=== PATIENT | male | born 1935 | race Caucasian/White ===

== ENCOUNTER 2017-04-03 10:23 | Emergency (ER) | payer OTHER ==
--- NOTE | 2017-04-03 12:17 | DIAGNOSTIC IMAGING REPORT ---
PROCEDURE: XR LUMBAR SPINE 2 OR 3 VIEWS INDICATION: LOWER BACK PAIN TECHNIQUE: Three views. COMPARISON: None. FINDINGS: Normal alignment. Mild T11, T12 and L1 compression fractures which appear chronic. Loss of lordosis. Moderate spur formation most prominent at L3-4. Mild L3-4 disc space narrowing. Soft tissues are unremarkable. IMPRESSION: 1. Mild T11, T12-L1 compression fractures which appear chronic 2. Loss of lordosis suggestive of muscular spasm 3. Moderate degenerative changes with mild L3-4 disc space narrowing.
--- NOTE | 2017-04-03 13:22 | ED NURSING NOTES ---
Clinical Report - Nurses [facility] [address] [place] [address] 04/03/2017 10:27 Patient: REECE ALLEN TRIAGE Triage time 10:40. Acuity: LEVEL 3. Chief Complaint: BACK PAIN and (Lower rt side pain). Alert. No acute distress. SEPSIS SCREEN: Sepsis Screen: negative. Negative (no infection suspected/documented). SARA COMA SCORE: Sara Coma Scale: 15- eyes open spontaneously (4); best verbal response- oriented x 4 (5); best motor response- obeys commands (6). --10:49 Sasha Ashby R.N. 10:40 04/03/17. BP: 114/95 taken on the left arm, while sitting. HR: 76. RR: 20. O2 saturation: 96%. Temp: 97.9 F. Pain level now: 08/09. --10:49 Sasha Ashby R.N. Weight: 77.1 kg stated. Height/Length: 65 inches Per Patient. BMI: 28.3. --10:47 Sasha Ashby R.N. Medications Atenolol Oral 100 mg, daily. HCTZ 50 mg, daily. Lisinopril Oral 20 mg, daily. --10:43 Sasha Ashby R.N. MetFORMIN HCl Oral 850 mg, daily. --10:44 Sasha Ashby R.N. Simvastatin Oral 20 mg, daily. --10:45 Sasha Ashby R.N. Glimepiride Oral (Tablet 2 mg) 1 tablet, day. --10:45 Sasha Ashby R.N. Doxazosin Mesylate Oral (Tablet 2 mg) 1 tablet, day. --10:46 Sasha Ashby R.N. Medication/allergy information source: the patient. --10:49 Sasha Ashby R.N. Allergies NKDA. --10:43 Sasha Ashby R.N. History Arrived by private vehicle. Historian: patient and family. This started last night. No history of recent trauma. Treatment MATERIAL SPECIALIST: None. SOCIAL HX: Never smoker. No alcohol use or drug use. FALL RISK ASSESSMENT: Fall risk assessment completed. No fall risk identified. NUTRITIONAL RISK ASSESSMENT: The nutritional risk assessment revealed no deficiencies. FUNCTIONAL ASSESSMENT: Functional assessment: no impairments noted. LEARNING NEEDS ASSESSMENT: The learning needs assessment revealed no barriers. SKIN INTEGRITY ASSESSMENT: Skin integrity risk assessment completed. No skin integrity risk identified. --10:49 Sasha Ashby R.N. PAST MEDICAL HX: Tetanus status: unknown. --10:49 Sasha Ashby R.N. PROBLEMS: Chest pain . Hypercholesterolemia. Diabetes Mellitus. Back Pain. --10:47 Sasha Ashby R.N. ADDITIONAL SURGERIES: no known surgeries. Interventions ID band on patient. To room. --10:49 Sasha Ashby R.N. PHYSICAL ASSESSMENT To room via wheelchair. Patient gowned. GENERAL / NEURO / PSYCH: Alert. Oriented X 4. Appears in pain and anxious. RESPIRATORY: Respirations not labored. CVS: Capillary refill less than 2 seconds. GI / : Abdomen nontender. EXTREMITIES: Limited ROM present. Sensation intact in extremities. BACK: Limited ROM of the back. --10:50 Sasha Ashby R.N. NURSING PROGRESS NOTES Cold pack applied. Patient gowned. Head of bed elevated. Two patient identifiers checked. Call light placed in reach. Side rails up x 2. Bed placed in lowest position. Brakes of bed on. Patient ready for evaluation. --10:50 Sasha Ashby R.N. Patient returned from radiology by stretcher with tech. --11:44 Sasha Ashby R.N. 12:29 04/03/2017 Toradol (Ketorolac Tromethamine) IM 60 mg given. Given in the left gluteus christine. Allergies verified and confirmed 5 rights. --12:29 Sasha Ashby R.N. 12:29 04/03/2017 Valium (Diazepam) IM 3 mg given. Given in the right gluteus christine. --12:29 Sasha Ashby R.N. DISPOSITION / DISCHARGE Condition at departure: improved. No learning barriers present. Discharge instructions provided and reviewed with the patient. Reviewed medication(s) side effects, precautions, dosing and course information. Prescription(s) given to the patient. Patient verbalized understanding. Written instructions provided in Spanish and Russian. The patient was discharged home and accompanied by spouse. He left the Emergency Department ambulatory and via private vehicle. Spouse driving. Medication list reviewed and validated. --13:57 Sasha Ashby R.N. 13:30 04/03/17. BP: 122/76. HR: 69. RR: 18. O2 saturation: 98%. Temp: deferred. Pain level now: 05/09. 12:10 04/03/17. BP: 136/76. HR: 78. RR: 20. O2 saturation: 97%. Pain level now: 05/09. Additional comments: improving . 10:40 04/03/17. BP: 114/95 taken on the left arm, while sitting. HR: 76. RR: 20. O2 saturation: 96%. Temp: 97.9 F. Pain level now: 08/09. --13:57 Sasha Ashby R.N. Departure time: 1330. --13:58 Sasha Ashby R.N. Locked/Released at 04/03/2017 14:00 by Sasha Ashby R.N.
--- NOTE | 2017-04-03 13:22 | ED CLINICAL REPORT ---
Clinical Report - Physicians/Mid Levels [facility] [address] [address] 04/03/2017 10:27 Patient: REECE ALLEN Time Seen: 11:01. Arrived- By private vehicle. Historian- patient, using an historic interpreter via language phone. HISTORY OF PRESENT ILLNESS Chief Complaint: BACK PAIN. Modifying factors- worsened by walking. Relieved by lying down or remaining still. It is described as being severe and in the area of the lower lumbar spine and right side of the lower lumbar spine. The quality is noted to be sharp. No radiation. Onset was yesterday and it is still present. It was abrupt in onset and has been constant. No bladder dysfunction, bowel dysfunction, sensory loss or motor loss. Patient denies an injury. Similar symptoms previously: None. REVIEW OF SYSTEMS No chills, fever, calf pain, chest pain or cough. No difficulty breathing, palpitations, abdominal pain, black stools or bloody stools. No constipation, diarrhea, nausea, vomiting or urinary problems. The patient has experienced sweats. It has been similar to previous symptoms. (chronically). He has had mild pedal edema involving the right and left leg (chronically). It has been similar to previous symptoms. All systems otherwise negative, except as recorded above. PAST HISTORY PCP - REECE HINDS SOCIAL HISTORY Never smoker. No alcohol use or drug use. ADDITIONAL NOTES The nursing notes have been reviewed. PHYSICAL EXAM Vital Signs: 04/03/2017 10:40 BP: 114/95. HR: 76. RR: 20. O2 saturation: 96%. Temp: 97.9 F. Pain level now: 10. Have been reviewed. Appearance: Alert. Eyes: Pupils equal, round and reactive to light. ENT: Pharynx normal. Neck: Normal inspection. Painless ROM. CVS: Normal heart rate and rhythm. Heart sounds normal. Respiratory: No respiratory distress. Breath sounds normal. Abdomen: Normal inspection. Soft and nontender. Bowel sounds normal. No organomegaly. No mass. Back: Muscle spasm present. Limited ROM in the back. No vertebral point tenderness. Skin: Skin warm and dry. Normal skin color. Normal skin turgor. Extremities: Extremities exhibit normal ROM. Extremities nontender. No calf tenderness. Neuro: No motor deficit. No sensory deficit. LABS, X-RAYS, AND EKG LS-Spine X-rays: (IMPRESSION: 1. Mild T11, T12-L1 compression fractures which appear chronic 2. Loss of lordosis suggestive of muscular spasm 3. Moderate degenerative changes with mild L3-4 disc space narrowing.). The X-rays were interpreted by the radiologist and contemporaneously by me. Laboratory Tests: UA-Culture if indicated: (CITLALI: 04/03/2017 12:45) ( MsgRcvd 04/03/2017 13:14) Final results Test Result Flag Units (Reference) URINE COLOR YELLOW URINE APPEARANCE CLEAR URINE GLUCOSE NEGATIVE (NEGATIVE) URINE BILIRUBIN NEGATIVE (NEGATIVE) URINE KETONE NEGATIVE (NEGATIVE) URINE SPECIFIC GRAVITY 1.020 (1.010-1.030) URINE PH 6.5 (5.0-8.0) URINE PROTEIN NEGATIVE (NEGATIVE) URINE UROBILINOGEN 0.2 EU/dL (0.2-1.0) URINE NITRITE NEGATIVE (NEGATIVE) URINE BLOOD NEGATIVE (NEGATIVE) URINE LEUK ESTERASE NEGATIVE (NEGATIVE) URINE RBC NONE SEEN rbc/hpf (0-1) URINE WBC RARE wbc/hpf (0-1) URINE EPITHELIAL CELLS 0-1 EPI/hpf (0-5) URINE BACTERIA TRACE (<1+) (NONE SEEN) URINE COMMENT CULT NOT INDICATED URINE CULTURES ARE SET-UP BASED ON THE FOLLOWING CRITERIA:POSITIVE NITRITEPOSITIVE LEUKOCYTE ESTERASEGREATER THAN 10 WHITE BLOOD CELLSMODERATE (2+) OR GREATER BACTERIA . PROGRESS AND PROCEDURES Course of Care: Patient is stable. Patient/family counseled. Old medical records reviewed. CLINICAL IMPRESSION Acute nontraumatic lumbar back pain associated with degenerative joint disease of the lumbar spine; degenerative disc disease of the lumbar spine. INSTRUCTIONS Apply ice for 20 minutes four times a day until better. Don't apply ice directly to skin and don't use while asleep. No driving or operating machinery while taking medication. Sedative medication was given during your visit. No lifting greater than 5 lbs, no bending or stooping or no prolonged sitting. Warnings: GENERAL WARNINGS: Return or contact your physician immediately if your condition worsens or changes unexpectedly, if not improving as expected, or if other problems arise. Prescription Medications: Hydrocodone/APAP 5mg/325mg: take 1 to 2 orally every 6 hours as needed for pain. Dispense fifteen (15). No refills. Understanding of the discharge instructions verbalized by patient. (Electronically signed by Coleman York MD 04/03/2017 20:43)
--- NOTE | 2017-04-03 13:22 | ED ORDER SUMMARY ---
..... Patient: REECE ALLEN OrderSheet [facility] VisitID: [id number] [place] [address] 81y, M Registration Date/Time: 04/03/2017 ORDER SHEET Weight: 77.1 kg (stated) Allergies: NKDA GENERAL ORDERS: Lumbar Spine 2 or 3V Urgent (11:06 04/03/2017 Titi FRANCISCO) (Ack 11:17 Karen) (12:15 SRoberts R.N.) UA-Culture if indicated Urgent (11:54 04/03/2017 Titi FRANCISCO) (Ack 12:10 Karen) (12:50 COerbanner) MEDICATION ORDERS: Toradol IM 60 mg (NOW) (11:58 04/03/2017 Titi FRANCISCO) (Ack 12:15 SRoberts R.N.) (12:29 SRoberts R.N.) Valium IM 3 mg (HIGH ALERT MEDICATION, NOW) (11:58 04/03/2017 Titi FRANCISCO) (Ack 12:15 SRoberts R.N.) (12:29 SRoberts R.N.) IV FLUIDS: ORDER SHEET NOTES: [Electronically signed by Sasha Ashby R.N. (14:00 04/03/2017)] [Electronically signed by Coleman York MD (20:43 04/03/2017)] [Electronically locked/signed by Sasha Ashby R.N. (14:00 04/03/2017)]
--- NOTE | 2017-04-03 13:22 | ED ORDER SUMMARY ---
..... Patient: REECE ALLEN OrderSheet [facility] VisitID: [id number] [place] [address] 81y, M Registration Date/Time: 04/03/2017 ORDER SHEET Weight: 77.1 kg (stated) Allergies: NKDA GENERAL ORDERS: Lumbar Spine 2 or 3V Urgent (11:06 04/03/2017 Titi FRANCISCO) (Ack 11:17 Karen) (12:15 SRoberts R.N.) UA-Culture if indicated Urgent (11:54 04/03/2017 Titi FRANCISCO) (Ack 12:10 Karen) (12:50 [facility] MEDICATION ORDERS: Toradol IM 60 mg (NOW) (11:58 04/03/2017 Titi FRANCISCO) (Ack 12:15 SRoberts R.N.) (12:29 SRoberts R.N.) Valium IM 3 mg (HIGH ALERT MEDICATION, NOW) (11:58 04/03/2017 Titi FRANCISCO) (Ack 12:15 SRoberts R.N.) (12:29 SRoberts R.N.) IV FLUIDS: ORDER SHEET NOTES: [Electronically signed by Sasha Ashby R.N. (14:00 04/03/2017)] [Electronically signed by Coleman York MD (20:43 04/03/2017)] [Electronically locked/signed by Sasha Ashby R.N. (14:00 04/03/2017)]
--- NOTE | 2017-04-03 20:44 | ED DISCHARGE INSTRUCTIONS ---
Patient: REECE ALLEN General Instructions [facility] VisitID: [id number] [place] [address] 81y, M Registration Date/Time: 04/03/2017 Acute nontraumatic lumbar back pain associated with degenerative joint disease of the lumbar spine; degenerative disc disease of the lumbar spine. INSTRUCTIONS Apply ice for 20 minutes four times a day until better. Don't apply ice directly to skin and don't use while asleep. No driving or operating machinery while taking medication. Sedative medication was given during your visit. No lifting greater than 5 lbs, no bending or stooping or no prolonged sitting. Warnings: GENERAL WARNINGS: Return or contact your physician immediately if your condition worsens or changes unexpectedly, if not improving as expected, or if other problems arise. Prescription Medications: Hydrocodone/APAP 5mg/325mg: take 1 to 2 orally every 6 hours as needed for pain. Dispense fifteen (15). No refills. Understanding of the discharge instructions verbalized by patient. ADDITIONAL INFORMATION Back Pain [Acute Or Chronic] Back pain is usually caused by an injury to the muscles or ligaments of the spine. Sometimes the disks that separate each bone in the spine may bulge and cause pain by pressing on a nearby nerve. Back pain may also appear after a sudden twisting/bending force (such as in a car accident), after a simple awkward movement, or lifting something heavy with poor body positioning. In either case, muscle spasm is often present and adds to the pain. Acute back pain usually gets better in one to two weeks. Back pain related to disk disease, arthritis in the spinal joints or spinal stenosis (narrowing of the spinal canal) can become chronic and last for months or years. Unless you had a physical injury (for example, a car accident or fall) X-rays are usually not ordered for the initial evaluation of back pain. If pain continues and does not respond to medical treatment, x-rays and other tests may be performed at a later time. Home Care: You may need to stay in bed the first few days. But, as soon as possible, begin sitting or walking to avoid problems with prolonged bed rest (muscle weakness, worsening back stiffness and pain, blood clots in the legs). When in bed, try to find a position of comfort. A firm mattress is best. Try lying flat on your back with pillows under your knees. You can also try lying on your side with your knees bent up towards your chest and a pillow between your knees. Avoid prolonged sitting. This puts more stress on the lower back than standing or walking. During the first two days after injury, apply an ICE PACK to the painful area for 20 minutes every 2-4 hours. This will reduce swelling and pain. HEAT (hot shower, hot bath or heating pad) works well for muscle spasm. You can start with ice, then switch to heat after two days. Some patients feel best alternating ice and heat treatments. Use the one method that feels the best to you. You may use acetaminophen (Tylenol) or ibuprofen (Motrin, Advil) to control pain, unless another pain medicine was prescribed. [NOTE: If you have chronic liver or kidney disease or ever had a stomach ulcer or GI bleeding, talk with your doctor before using these medicines.] Be aware of safe lifting methods and do not lift anything over 15 pounds until all the pain is gone. Follow Up with your doctor or this facility if your symptoms do not start to improve after one week. Physical therapy may be needed. [NOTE: If X-rays were taken, they will be reviewed by a radiologist. You will be notified of any new findings that may affect your care.] Get Prompt Medical Attention if any of the following occur: Pain becomes worse or spreads to your legs Weakness or numbness in one or both legs Loss of bowel or bladder control Numbness in the groin or genital area Degenerative Disk Disease Spinal disks are gel-filled cushions between the bones of the spine (vertebrae). The disks act like shock absorbers. Over time, the disks may break down. This disorder is called degenerative disk disease (DDD). DDD can affect the neck or back. It is one of the most common causes of low back pain. It is the leading cause of disability in people under age 45 in the [place]. The pain usually remains localized to the lower back or neck. Muscle spasm is often present and adds to the pain. Disk degeneration is a natural part of aging, although it does not cause pain in most persons. It may also occur as a result of repeated minor injuries due to daily activities, sports, or accidents. It may lead to osteoarthritis of the spine. Back pain related to disk disease may come and go or become chronic and last for months or years. If the disk bulges or ruptures (also called slipped disk or herniated disk), it can put pressure on a nearby spinal nerve and cause neck or back pain that spreads down one arm or leg. X-rays or MRI (magnetic resonance imaging) scan may aid in the diagnosis. For acute pain, treatment consists of anti-inflammatory drugs, muscle relaxants, rest, ice, or heat. Narcotic pain medicines may be needed for short-term treatment of sudden worsening of pain. Due to their addictive potential, narcotics are not advised for long-term pain management. Other types of medicines are preferred. Surgery is usually not used to treat this condition unless there is a complication (such as nerve root compression). Home Care: FOR NECK PAIN: Use a comfortable pillow that supports the head and keeps the spine in a neutral position. The head should not be tilted forward or backward. FOR BACK PAIN: Avoid prolonged sitting. This puts more stress on the lower back than standing or walking. Establishing a regular exercise program to strengthen the supporting muscles of the spine will make it easier to live with DDD. During the first2 days after a flare-up of your pain, apply anice pack to the painful area for 20 minutes every 2-4 hours. This will reduce swelling and pain.Heat (hot shower, hot bath, or heating pad) works well for muscle spasm. You can start with ice, then switch to heat after2 days. Some patients feel best alternating ice and heat treatments. Use the method that feelsbest to you. You may use acetaminophen (Tylenol) or ibuprofen (Motrin, Advil) to control pain, unless another pain medicine was prescribed. [NOTE: If you have chronic liver or kidney disease or ever had a stomach ulcer or GI bleeding, talk with your doctor before using these medicines.] Follow Up with your physician, or as directed by our staff. [NOTE: If x-rays, a CT scan or an MRI scan were taken, they will be reviewed by a radiologist. You will be notified of any new findings that may affect your care.] Return Promptly or contact your doctor if any of the following occur: Increasing back pain New weakness, numbness, or pain in one or both arms or legs Foot drop (foot drags when you walk) Loss of bowel or bladder control Numbness or tingling in the buttock or groin area Unexplained fever over 100.4F (38.0C) Hydrocodone Bitartrate, Acetaminophen Oral tablet What is this medicine? ACETAMINOPHEN; HYDROCODONE (a set a SALVADOR jasvir fen; annette droe KOE done) is a pain reliever. It is used to treat mild to moderate pain. How should I use this medicine? Take this medicine by mouth. Swallow it with a full glass of water. Follow the directions on the prescription label. If the medicine upsets your stomach, take the medicine with food or milk. Do not take more than you are told to take. Talk to your unclaimed property officer regarding the use of this medicine in children. This medicine is not approved for use in children. What side effects may I notice from receiving this medicine? Side effects that you should report to your doctor or health health care / medical job titles as soon as possible: allergic reactions like skin rash, itching or hives, swelling of the face, lips, or tongue breathing problems confusion feeling faint or lightheaded, falls stomach pain yellowing of the eyes or skin Side effects that usually do not require medical attention (report to your doctor or health health care / medical job titles if they continue or are bothersome): nausea, vomiting stomach upset What may interact with this medicine? alcohol antihistamines isoniazid medicines for depression, anxiety, or psychotic disturbances medicines for sleep muscle relaxants naltrexone narcotic medicines (opiates) for pain phenobarbital ritonavir tramadol What if I miss a dose? If you miss a dose, take it as soon as you can. If it is almost time for your next dose, take only that dose. Do not take double or extra doses. Where should I keep my medicine? Keep out of the reach of children. This medicine can be abused. Keep your medicine in a safe place to protect it from theft. Do not share this medicine with anyone. Selling or giving away this medicine is dangerous and against the law. Store at room temperature between 15 and 30 degrees C (59 and 86 degrees F). Protect from light. Keep container tightly closed. Throw away any unused medicine after the expiration date. Discard unused medicine and used packaging carefully. Pets and children can be harmed if they find used or lost packages. What should I tell my health care provider before I take this medicine? They need to know if you have any of these conditions: brain tumor Crohn's disease, inflammatory bowel disease, or ulcerative colitis drink more than 3 alcohol-containing drinks per day drug abuse or addiction head injury heart or circulation problems kidney disease or problems going to the bathroom liver disease lung disease, asthma, or breathing problems an unusual or allergic reaction to acetaminophen, hydrocodone, other opioid analgesics, other medicines, foods, dyes, or preservatives or trying to get breast-feeding What should I watch for while using this medicine? Tell your doctor or health health care / medical job titles if your pain does not go away, if it gets worse, or if you have new or a different type of pain. You may develop tolerance to the medicine. Tolerance means that you will need a higher dose of the medicine for pain relief. Tolerance is normal and is expected if you take the medicine for a long time. Do not suddenly stop taking your medicine because you may develop a severe reaction. Your body becomes used to the medicine. This does NOT mean you are addicted. Addiction is a behavior related to getting and using a drug for a non-medical reason. If you have pain, you have a medical reason to take pain medicine. Your doctor will tell you how much medicine to take. If your doctor wants you to stop the medicine, the dose will be slowly lowered over time to avoid any side effects. You may get drowsy or dizzy when you first start taking the medicine or change doses. Do not drive, use machinery, or do anything that may be dangerous until you know how the medicine affects you. Stand or sit up slowly. There are different types of narcotic medicines (opiates) for pain. If you take more than one type at the same time, you may have more side effects. Give your health care provider a list of all medicines you use. Your doctor will tell you how much medicine to take. Do not take more medicine than directed. Call emergency for help if you have problems breathing. The medicine will cause constipation. Try to have a bowel movement at least every 2 to 3 days. If you do not have a bowel movement for 3 days, call your doctor or health health care / medical job titles. Too much acetaminophen can be very dangerous. Do not take Tylenol (acetaminophen) or medicines that contain acetaminophen with this medicine. Many non-prescription medicines contain acetaminophen. Always read the labels carefully. You have been given the following additional information: Back Pain (Acute Or Chronic) Degenerative Disk Disease Hydrocodone Bitartrate, Acetaminophen Oral tablet No driving or operating machinery while taking medication. Sedative medication was given during your visit. No lifting greater than 5 lbs, no bending or stooping or no prolonged sitting. (Electronically signed by Coleman York MD 04/03/2017 20:43)
--- NOTE | 2017-04-03 20:44 | ED MED RECONCILIATION SUMMARY ---
Patient: REECE ALLEN Medication Reconciliation Report [facility] VisitID: [id number] [address] [place] [address] 81y, M Registration Date/Time: 04/03/2017 Weight: 77.1 kg Height/Length: 65 in. BMI: 28.3 ALLERGIES: NKDA The patient's Home Medications are listed below: THE FOLLOWING MEDICATIONS NEED TO BE RECONCILED: Atenolol Oral 100 mg, daily Doxazosin Mesylate Oral (2 mg) 1 tablet, day Glimepiride Oral (2 mg) 1 tablet, day HCTZ 50 mg, daily Lisinopril Oral 20 mg, daily MetFORMIN HCl Oral 850 mg, daily Simvastatin Oral 20 mg, daily The source(s) of the original Home Medication information: patient The following Medications were given to the patient in the Emergency Department: Toradol [IM] IM 60 mg, administered: 04/03/2017 12:29:00 PM Valium [IM] IM 3 mg, administered: 04/03/2017 12:29:00 PM The following Medications were prescribed to the patient: Hydrocodone/APAP 5mg/325mg: take 1 to 2 orally every 6 hours as needed for pain. Dispense fifteen (15). No refills. -- Coleman York MD
--- NOTE | 2017-04-03 20:44 | ED MAR SUMMARY ---
..... Medication Administration Record [facility] [address] [place] [address] Patient: REECE ALLEN Visit ID: [id number] 81y, M Weight: 77.1 kg Height/Length: 65 in BMI: 28.3 ALLERGIES: NKDA Given 12:04/03/2017 Sasha Ashby R.N. Medication Administered: TORADOL [IM] (KETOROLAC TROMETHAMINE), Dose: 60 mg IM. Medication Ordered: Toradol IM 60 mg (NOW). Given 12:04/03/2017 Sasha Ashby R.N. Medication Administered: VALIUM [IM] (DIAZEPAM), Dose: 3 mg IM. Medication Ordered: Valium IM 3 mg (HIGH ALERT MEDICATION, NOW).
--- NOTE | 2017-04-03 20:44 | ED MED RECONCILIATION SUMMARY ---
Patient: REECE ALLEN Medication Reconciliation Report [facility] VisitID: [id number] [address] [place] [address] 81y, M Registration Date/Time: 04/03/2017 Weight: 77.1 kg Height/Length: 65 in. BMI: 28.3 ALLERGIES: NKDA The patient's Home Medications are listed below: THE FOLLOWING MEDICATIONS NEED TO BE RECONCILED: Atenolol Oral 100 mg, daily Doxazosin Mesylate Oral (2 mg) 1 tablet, day Glimepiride Oral (2 mg) 1 tablet, day HCTZ 50 mg, daily Lisinopril Oral 20 mg, daily MetFORMIN HCl Oral 850 mg, daily Simvastatin Oral 20 mg, daily The source(s) of the original Home Medication information: patient The following Medications were given to the patient in the Emergency Department: Toradol [IM] IM 60 mg, administered: 04/03/2017 12:29:00 PM Valium [IM] IM 3 mg, administered: 04/03/2017 12:29:00 PM The following Medications were prescribed to the patient: Hydrocodone/APAP 5mg/325mg: take 1 to 2 orally every 6 hours as needed for pain. Dispense fifteen (15). No refills. -- Coleman York MD
--- NOTE | 2017-04-03 20:44 | ED MAR SUMMARY ---
..... Medication Administration Record [facility] [address] [place] [address] Patient: REECE ALLEN Visit ID: [id number] 81y, M Weight: 77.1 kg Height/Length: 65 in BMI: 28.3 ALLERGIES: NKDA Given 12:04/03/2017 Sasha Ashby R.N. Medication Administered: TORADOL [IM] (KETOROLAC TROMETHAMINE), Dose: 60 mg IM. Medication Ordered: Toradol IM 60 mg (NOW). Given 12:04/03/2017 Sasha Ashby R.N. Medication Administered: VALIUM [IM] (DIAZEPAM), Dose: 3 mg IM. Medication Ordered: Valium IM 3 mg (HIGH ALERT MEDICATION, NOW).
== END 2017-04-03 13:48 | disposition home or self-care (01) ==
LOC: ED SRH 10:23
DX: M47.816 Spondylosis without myelopathy or radiculopathy, lumbar region (principal); M51.36 Other intervertebral disc degeneration, lumbar region; E11.9 Type 2 diabetes mellitus without complications; Z79.84 Long term (current) use of oral hypoglycemic drugs
CPT/HCPCS: 90004